=== PATIENT | female | born 1955 | race Caucasian/White ===

== ENCOUNTER 2018-02-17 05:35 | Inpatient (IN) | payer MEDICAID ==
[~2018-02-17] VITALS: Ht 157.5 cm; Wt 86.2 kg
[~2018-02-17 05:35] MED LIST: CALC-61 PO; ENAL10TA PO; ERGO500013 PO; NORT50CA PO
[2018-02-17] MEDS ORDERED: LACTATED RINGERS 1,000 ML IV SCH (06:40)
[2018-02-17] MEDS ORDERED: OMEP20CA10 PO (07:05)
[2018-02-17] MEDS ORDERED: DICL75TA5 PO (07:05)
[2018-02-17] MEDS ORDERED: XALAO EACHEYE (07:05)
[2018-02-17] MEDS ORDERED: DOCU-272 PO (07:05)
[2018-02-17] MEDS ORDERED: TRAM50TA3 PO (07:05)
[2018-02-17] MEDS ORDERED: TRANEXAMIC ACID 1,000 MG/10 ML IV NR (07:15)
[2018-02-17 07:20] LABS: CLARITY URINE CLEAR (CLEAR); COLOR URINE YELLOW (YELLOW); KETONES URINE NEGATIVE (NEGATIVE); LEUKOCYTE ESTERASE URINE NEGATIVE (NEGATIVE); NITRITE URINE NEGATIVE (NEGATIVE); OCCULT BLOOD URINE NEGATIVE (NEGATIVE); PROTEIN URINE NEGATIVE (NEGATIVE); UROBILINOGEN URINE 0.2 E.U./dL (0.2-1.0)
[2018-02-17 07:21] LABS: PARTIAL THROMBOPLASTIN TIME 25.7 sec (23.4-31.0); PROTHROMBIN TIME 10.1 sec (9.1-11.1)
[2018-02-17] MEDS ORDERED: LEVOFLOXACIN 500MG PREMIX 100 ML IV ONE (07:24)
[2018-02-17] MEDS ORDERED: GENTAMICIN SULF 40MG/ML 2ML VIAL ONE ×2 (07:29→09:04)
[2018-02-17] MEDS ORDERED: METHYLENE BLUE 50 MG/10 ML AMP IV ONE (07:29)
[2018-02-17] MEDS ORDERED: EPINEPHRINE 1:1000 1 MG/ML AMP ONE (07:30)
[2018-02-17] MEDS ORDERED: CLINDAMYCIN 900 MG in DEXTROSE 5% WATER 50 ML IV STA (07:30)
[2018-02-17] MEDS ORDERED: BUPIVACAINE HCL/EPINEPHRINE 0.5%/0.0005 30ML ONE (07:30)
[2018-02-17] MEDS ORDERED: BUPIVACAINE HCL 0.5% (5MG/ML) 50ML ONE (07:30)
[2018-02-17] MEDS ORDERED: NORMAL SALINE 0.9% 10 ML SYR ONE (07:30)
[2018-02-17] MEDS ORDERED: TRANEXAMIC ACID IV NR ×2 (07:30→10:15)
[2018-02-17] MEDS ORDERED: SODIUM CHLORIDE 0.9% IV NR ×2 (07:30→10:15)
[2018-02-17] MEDS ORDERED: BACITRACIN 50,000 UNITS/VIAL ONE (07:31)
[2018-02-17] MEDS ORDERED: PROPOFOL 200MG/20ML VIAL IV ONE (07:46)
[2018-02-17] MEDS ORDERED: LIDOCAINE HCL/PF 1% 10 MG/ML 5ML VIAL ONE (07:46)
[2018-02-17] MEDS ORDERED: EPHEDRINE SULFATE 50MG/ML VIAL ONE (07:47)
[2018-02-17] MEDS ORDERED: MIDAZOLAM HCL 2 MG/2 ML VIAL ONE (07:47)
[2018-02-17] MEDS ORDERED: ROCURONIUM BROMIDE 10MG/ML VIAL 5ML IV ONE (07:47)
[2018-02-17] MEDS ORDERED: FENTANYL CITRATE/PF 50MCG/ML 2ML VIAL ONE (07:47)
[2018-02-17] MEDS ORDERED: MORPHINE SULFATE/PF 1MG/ML 10ML AMP ONE (09:04)
[2018-02-17] MEDS ORDERED: BUPIVACAINE/EPINEPH/PF 0.25%/0.0005 10ML ONE (09:33)
[2018-02-17] MEDS ORDERED: VANCOMYCIN HCL 500 MG/VIAL ONE ×2 (10:03→10:04)
[2018-02-17] MEDS ORDERED: ONDANSETRON HCL 4MG/2ML INJ ONE (11:18)
[2018-02-17] MEDS ORDERED: DEXAMETHASONE 4MG/ML 1ML VIAL ONE (11:18)
[2018-02-17] MEDS ORDERED: HYDROMORPHONE HCL/PF 2MG/ML CPJ ONE (12:04)
[2018-02-17] MEDS: HYDROMORPHONE HCL/PF 2MG/ML CPJ IV PRN ×4 (12:09→13:10)
[2018-02-17] MEDS ORDERED: MAGNESIUM HYDROXIDE 400MG/5ML 30ML UDC PO PRN (12:15)
[2018-02-17] MEDS ORDERED: ONDANSETRON HCL 4MG/2ML INJ IV PRN (12:15)
[2018-02-17] MEDS ORDERED: HYDROCODONE/ACETAMINOPHEN 10/325MG TABLET PO PRN (12:15)
[2018-02-17] MEDS ORDERED: ACETAMINOPHEN 325MG TABLET PO PRN (12:15)
[2018-02-17] MEDS: ONDANSETRON HCL 4MG/2ML INJ IV PRN ×2 (12:16→12:55)
[2018-02-17] MEDS ORDERED: NALOXONE INJ IV PRN (13:30)
[2018-02-17] MEDS ORDERED: ONDANSETRON INJ IV PRN (13:30)
[2018-02-17] MEDS ORDERED: MORPHINE PCA 50MG/50ML IV PRN (13:30)
[2018-02-17] MEDS: DIPHENHYDRAMINE INJ IV PRN (14:07)
[2018-02-17] MEDS ORDERED: METOCLOPRAMIDE HCL 10MG/2ML VIAL IV ONE (14:15)
[2018-02-17 16:00] VITALS: BP_SYST 122; BP_SYST 130; BP_DIAS 61; BP_DIAS 88
[2018-02-17] MEDS ORDERED: METOCLOPRAMIDE HCL 10MG/2ML VIAL IV NR (16:00)
[2018-02-17] MEDS: CELECOXIB 200MG CAPSULE PO SCH (17:42)
[2018-02-17] MEDS: DOCUSATE SODIUM 100MG CAPSULE PO SCH (17:50)
[2018-02-17] MEDS: FERROUS SULFATE 325MG TABLET PO SCH (18:42)
[2018-02-17 20:00] VITALS: BP 122/66
[2018-02-17] MEDS: CLINDAMYCIN 900 MG in DEXTROSE 5% WATER 50 ML IV SCH (20:56)
[2018-02-17] MEDS: LATANOPROST 0.005% OPHTH DROPS 2.5ML EACHEYE SCH (20:56)
[2018-02-17] MEDS: ENALAPRIL 5MG TABLET PO SCH (20:56)
[2018-02-17] MEDS ORDERED: ERGOCALCIFEROL 50000UNITS CAPSULE PO SCH (21:00)
[2018-02-17] MEDS ORDERED: NORTRIPTYLINE HCL 25MG CAPSULE PO PRN (21:00)
[2018-02-18] VITALS: BP 124/60
[2018-02-18] MEDS: ZOLPIDEM TARTRATE 5MG TABLET PO PRN ×2 (00:11→22:22)
[2018-02-18 04:00] VITALS: BP 110/59
[2018-02-18] MEDS: CLINDAMYCIN 900 MG in DEXTROSE 5% WATER 50 ML IV SCH (05:11)
[2018-02-18] MEDS: OMEPRAZOLE 20MG CAPSULE EXTENDED RELEASE PO SCH (06:51)
[2018-02-18] MEDS: FERROUS SULFATE 325MG TABLET PO SCH ×3 (06:51→17:12)
[2018-02-18 06:56] LABS: BASOPHILS % 0.1 % (0.0-2.0); EOSINOPHILS % 0.1 % (0.0-5.0); HEMATOCRIT. 32.6 % (36.0-48.0); HEMOGLOBIN. 11.1 g/dL (12.0-16.0); MEAN CORPUSCULAR HEMOGLOBIN 31.1 pg (28.0-32.0); MEAN CORPUSCULAR VOLUME 91.4 fL (81.0-99.0); MEAN PLATELET VOLUME 9.8 fl (7.4-10.4); MONOCYTES % 9.6 % (2.0-8.0); NEUTROPHILS % 75.2 % (40.0-76.0); PLATELET 255 x1000/uL (130-400); RED BLOOD CELL COUNT 3.56 mill/uL (4.2-5.4)
[2018-02-18 07:48] LABS: CHLORIDE 106 mEq/L (98-107)
[2018-02-18 07:55] LABS: PHOSPHORUS 3.3 mg/dL (2.5-4.9)
[2018-02-18 07:56] LABS: LDL CHOLESTEROL 109 mg/dL (5-100)
[2018-02-18 07:58] LABS: HDL CHOLESTEROL 38 mg/dL (40-59)
[2018-02-18] MEDS: ENALAPRIL 5MG TABLET PO SCH (08:23)
[2018-02-18] MEDS: DOCUSATE SODIUM 100MG CAPSULE PO SCH ×2 (08:28→17:12)
[2018-02-18] MEDS: CELECOXIB 200MG CAPSULE PO SCH ×2 (08:28→17:12)
[2018-02-18 08:34] VITALS: BP 100/49
[2018-02-18] MEDS: ENOXAPARIN 30MG/0.3ML SYR SUBCUT SCH ×2 (10:09→22:21)
[2018-02-18 11:49] VITALS: BP 125/61
[2018-02-18] MEDS: HYDROCODONE/ACETAMINOPHEN 10/325MG TABLET PO PRN ×2 (12:43→22:19)
[2018-02-18 16:05] VITALS: BP 104/67
[2018-02-18] MEDS: DIPHENHYDRAMINE INJ IV PRN (17:17)
[2018-02-18 20:00] VITALS: BP 104/56
[2018-02-18] MEDS: LATANOPROST 0.005% OPHTH DROPS 2.5ML EACHEYE SCH (22:20)
[2018-02-19] VITALS: BP 97/48
[2018-02-19 04:00] VITALS: BP 116/63
[2018-02-19] MEDS: HYDROCODONE/ACETAMINOPHEN 10/325MG TABLET PO PRN ×3 (04:50→13:24)
[2018-02-19 06:14] LABS: CHLORIDE 108 mEq/L (98-107)
[2018-02-19 06:30] LABS: BASOPHILS % 0.4 % (0.0-2.0); EOSINOPHILS % 1.8 % (0.0-5.0); HEMATOCRIT. 33.3 % (36.0-48.0); HEMOGLOBIN. 11.2 g/dL (12.0-16.0); LYMPHOCYTES % 29.6 % (20.0-50.0); MEAN CORPUSCULAR HEMOGLOBIN 31.2 pg (28.0-32.0); MEAN CORPUSCULAR VOLUME 92.8 fL (81.0-99.0); MEAN PLATELET VOLUME 9.9 fl (7.4-10.4); MONOCYTES % 9.9 % (2.0-8.0); NEUTROPHILS % 58.3 % (40.0-76.0); PLATELET 230 x1000/uL (130-400); RED BLOOD CELL COUNT 3.58 mill/uL (4.2-5.4); RED CELL DISTRIBUTION WIDTH 13.9 % (11.6-14.6)
[2018-02-19] MEDS: OMEPRAZOLE 20MG CAPSULE EXTENDED RELEASE PO SCH (06:55)
[2018-02-19 08:00] VITALS: BP 93/45
[2018-02-19] MEDS: ENALAPRIL 5MG TABLET PO SCH (08:48)
[2018-02-19] MEDS: FERROUS SULFATE 325MG TABLET PO SCH ×2 (09:19→13:00)
[2018-02-19] MEDS: CELECOXIB 200MG CAPSULE PO SCH (09:19)
[2018-02-19] MEDS: DOCUSATE SODIUM 100MG CAPSULE PO SCH (09:19)
[2018-02-19] MEDS: ENOXAPARIN 30MG/0.3ML SYR SUBCUT SCH (09:23)
[2018-02-19 12:00] VITALS: BP 107/57
[2018-02-19] MEDS ORDERED: FERR325T23 PO (13:53)
[2018-02-19 15:06] VITALS: BP 124/62
[2018-02-19 16:00] VITALS: BP 142/64
== END 2018-02-19 16:35 | disposition home health service (06) | DRG 302 ==
LOC: OR 05:35 → 6EST 05:36
PROVIDERS: ADMIT Orthopaedic Surgery; ATTEND Internal Medicine
PROC: 0SRD0J9 Replacement of Left Knee Joint with Synthetic Substitute, Cemented, Open Approach (ICD-10-PCS; principal; 2018-02-17 07:30)
DX: M17.12 Unilateral primary osteoarthritis, left knee (principal); D64.9 Anemia, unspecified; E66.9 Obesity, unspecified; E78.5 Hyperlipidemia, unspecified; I10 Essential (primary) hypertension; G47.00 Insomnia, unspecified; K59.09 Other constipation; G89.29 Other chronic pain; M65.9 Synovitis and tenosynovitis, unspecified; Z96.651 Presence of right artificial knee joint; Z88.0 Allergy status to penicillin; Z68.34 Body mass index [BMI] 34.0-34.9, adult
CPT/HCPCS: 36415; 73560; 80048; 80061; 83036; 83735; 84100; 84443; 86850; 86900; 88305; 88311; 97162; 97166; 97530; 97535; A4216; C1713; C1776; C1893; J0171; J1100; J1170; J1200; J1580; J1650; J1956; J2250; J2270; J2274; J2405; J2704; J2765; J3010; J3370; J3490; J7050; J7060; L1830; Q9968

== ENCOUNTER 2018-02-22 16:15 | Emergency (ER) | payer MEDICAID ==
[~2018-02-22] VITALS: Ht 154.9 cm; Wt 86.0 kg
[~2018-02-22 16:15] MED LIST changes: +DOCU-272 PO; +FERR325T23 PO; +OMEP20CA10 PO; +XALAO EACHEYE
[2018-02-22] MEDS ORDERED: SODIUM CHLORIDE 0.9% 1,000 ML IV ONE (17:21)
[2018-02-22] MEDS ORDERED: ONDANSETRON HCL 4MG/2ML INJ IV ONE (17:30)
[2018-02-22] MEDS ORDERED: MORPHINE SULFATE 2 MG/ML CPJ (NOT FOR IM USE) IV ONE (17:30)
[2018-02-22] MEDS ORDERED: MORPHINE SULFATE 10 MG/ML CPJ IV NR (18:00)
[2018-02-22 18:05] LABS: CHLORIDE 107 mEq/L (98-107); PROTHROMBIN TIME 10.5 sec (9.1-11.1)
[2018-02-22 18:07] LABS: BASOPHILS % 0.3 % (0.0-2.0); EOSINOPHILS % 0.2 % (0.0-5.0); HEMATOCRIT. 34.5 % (36.0-48.0); HEMOGLOBIN. 11.4 g/dL (12.0-16.0); LYMPHOCYTES % 8.1 % (20.0-50.0); MEAN CORPUSCULAR HEMOGLOBIN 30.7 pg (28.0-32.0); MEAN CORPUSCULAR VOLUME 92.9 fL (81.0-99.0); MEAN PLATELET VOLUME 9.8 fl (7.4-10.4); MONOCYTES % 5.2 % (2.0-8.0); NEUTROPHILS % 86.2 % (40.0-76.0); PLATELET 345 x1000/uL (130-400); RED BLOOD CELL COUNT 3.71 mill/uL (4.2-5.4); RED CELL DISTRIBUTION WIDTH 14.3 % (11.6-14.6)
[2018-02-22 18:11] LABS: HCG SCREEN NEGATIVE
[2018-02-22 18:30] VITALS: BP 155/65
[2018-02-22 18:36] LABS: CLARITY URINE TURBID (CLEAR); COLOR URINE DARK YELLOW (YELLOW); KETONES URINE 1+ (NEGATIVE); LEUKOCYTE ESTERASE URINE TRACE (NEGATIVE); NITRITE URINE NEGATIVE (NEGATIVE); OCCULT BLOOD URINE 2+ (NEGATIVE); PH URINE 5.5 (4.5-8.0); PROTEIN URINE 1+ (NEGATIVE); SPECIFIC GRAVITY URINE 1.022 (1.005-1.030)
== END 2018-02-22 22:15 | disposition home or self-care (01) ==
LOC: ER 22:06
DX: R10.84 Generalized abdominal pain (principal); K59.00 Constipation, unspecified; R11.0 Nausea; I10 Essential (primary) hypertension; Z98.890 Other specified postprocedural states; Z79.899 Other long term (current) drug therapy; Z88.0 Allergy status to penicillin
CPT/HCPCS: 36415; 74176; 80053; 81003; 83690; 84703; 85025; 85610; 96374; 96375; 99284; J2270; J2405; J7030

== ENCOUNTER 2018-04-21 11:38 | Emergency (ER) | payer MEDICAID ==
[~2018-04-21] VITALS: Ht 152.4 cm; Wt 83.0 kg
[2018-04-21 18:15] VITALS: BP 142/66
== END 2018-04-21 18:28 | disposition home or self-care (01) ==
LOC: ER 12:03
DX: M25.562 Pain in left knee (principal); M79.89 Other specified soft tissue disorders; I10 Essential (primary) hypertension; Z90.49 Acquired absence of other specified parts of digestive tract; Z88.0 Allergy status to penicillin; Z79.899 Other long term (current) drug therapy; Z96.659 Presence of unspecified artificial knee joint
CPT/HCPCS: 93971; 99284

== ENCOUNTER 2022-03-30 13:49 | Inpatient (IN) | payer MEDICARE, MEDICAID ==
[~2022-03-30] VITALS: Ht 157.5 cm; Wt 86.2 kg
[~2022-03-30 13:49] MED LIST changes: -CALC-61 PO; +DOCU-268 PO; -DOCU-272 PO; -ENAL10TA PO; +ENAL10TA19 PO; -OMEP20CA10 PO; +OMEP20CA14 PO; +[UNRECOGNIZED DRUG - CODE] PO
[2022-03-30] MEDS ORDERED: ACETAMINOPHEN 325MG TABLET PO STA (17:35)
[2022-03-30] MEDS ORDERED: SODIUM CHLORIDE 0.9% 1,000 ML IV ONE (17:45)
[2022-03-30 18:15] LABS: CLARITY URINE CLEAR (CLEAR); COLOR URINE YELLOW (YELLOW); KETONES URINE 1+ (NEGATIVE); LEUKOCYTE ESTERASE URINE TRACE (NEGATIVE); NITRITE URINE NEGATIVE (NEGATIVE); OCCULT BLOOD URINE NEGATIVE (NEGATIVE); PH URINE 5.5 (4.5-8.0); PROTEIN URINE NEGATIVE (NEGATIVE); SPECIFIC GRAVITY URINE 1.028 (1.005-1.030)
[2022-03-30 21:05] LABS: BASOPHILS % 0.4 % (0.0-2.0); EOSINOPHILS % 1.3 % (0.0-5.0); HEMATOCRIT. 30.1 % (36.0-48.0); LYMPHOCYTES % 35.7 % (20.0-50.0); MEAN CORPUSCULAR HEMOGLOBIN 28.2 pg (28.0-32.0); MEAN PLATELET VOLUME 9.6 fl (7.4-10.4); MONOCYTES % 13.8 % (2.0-8.0); NEUTROPHILS % 48.8 % (40.0-76.0); PLATELET 209 x1000/uL (130-400); RED BLOOD CELL COUNT 3.54 mill/uL (4.2-5.4); RED CELL DISTRIBUTION WIDTH 13.9 % (11.6-14.6)
[2022-03-30 21:08] LABS: CHLORIDE 110 mEq/L (98-107)
[2022-03-30] MEDS ORDERED: METOCLOPRAMIDE HCL 10MG/2ML VIAL IV ONE (21:30)
[2022-03-30] MEDS ORDERED: MORPHINE SULFATE 4 MG/ML CPJ (NOT FOR IM USE) IV ONE (21:45)
[2022-03-30] MEDS ORDERED: NITROGLYCERIN 0.4MG TABLET SL SL ONE (21:45)
[2022-03-30] MEDS ORDERED: IOHEXOL-350 100 ML BOTTLE ONE (23:09)
[2022-03-31 03:19] VITALS: BP 142/79
[2022-03-31] MEDS ORDERED: ONDANSETRON HCL 4MG/2ML INJ IV PRN (04:30)
[2022-03-31] MEDS ORDERED: IBUPROFEN 100MG/5ML UDC PO PRN (04:30)
[2022-03-31] MEDS ORDERED: IBUPROFEN 200MG TABLET PO PRN (04:45)
[2022-03-31 08:00] VITALS: BP 135/54
[2022-03-31] MEDS ORDERED: ENOXAPARIN 40MG/0.4ML SYR SUBCUT SCH (09:00)
[2022-03-31] MEDS: ASPIRIN 81MG TABLET PO SCH (09:04)
[2022-03-31] MEDS: OMEPRAZOLE 20MG CAPSULE EXTENDED RELEASE PO SCH (09:04)
[2022-03-31] MEDS ORDERED: ACETAMINOPHEN 325MG TABLET PO PRN ×2 (09:15→10:30)
[2022-03-31] MEDS ORDERED: GUAIFENESIN 200MG/10ML SUGAR FREE UDC PO PRN (10:30)
[2022-03-31] MEDS ORDERED: MAGNESIUM/ALUMINUM HYDROXIDE/SIMETHICONE 30ML UDC PO PRN (10:30)
[2022-03-31] MEDS ORDERED: IPRATROPIUM/ALBUTEROL 0.5-3(2.5)MG/3ML NEB HHN PRN (10:30)
[2022-03-31] MEDS ORDERED: ALBUTEROL (0.083%) 2.5MG/3ML NEB HHN PRN (11:30)
[2022-03-31] MEDS ORDERED: IPRATROPIUM BROMIDE (0.02%) 0.5MG/2.5ML NEB HHN PRN (11:30)
[2022-03-31 12:00] VITALS: BP 137/56
[2022-03-31] MEDS ORDERED: NALOXONE HCL 0.4MG/ML VIAL IV PRN (12:00)
[2022-03-31] MEDS: HYDROCODONE/ACETAMINOPHEN 5/325MG TABLET PO PRN ×3 (13:02→23:18)
[2022-03-31 13:10] LABS: BASOPHILS % 0.4 % (0.0-2.0); HEMATOCRIT. 28.2 % (36.0-48.0); HEMOGLOBIN. 9.6 g/dL (12.0-16.0); LYMPHOCYTES % 43.4 % (20.0-50.0); MEAN CORPUSCULAR HEMOGLOBIN 28.4 pg (28.0-32.0); MEAN CORPUSCULAR VOLUME 83.4 fL (81.0-99.0); MEAN PLATELET VOLUME 9.6 fl (7.4-10.4); MONOCYTES % 10.9 % (2.0-8.0); NEUTROPHILS % 43.3 % (40.0-76.0); PLATELET 201 x1000/uL (130-400); RED BLOOD CELL COUNT 3.38 mill/uL (4.2-5.4); RED CELL DISTRIBUTION WIDTH 13.5 % (11.6-14.6)
[2022-03-31 14:04] LABS: CHLORIDE 113 mEq/L (98-107)
[2022-03-31 14:17] LABS: HDL CHOLESTEROL 35 mg/dL (40-59); LDL CHOLESTEROL 56 mg/dL (5-100); T4 FREE 4.18 ng/dL (0.76-1.46)
[2022-03-31 16:00] VITALS: BP 140/65
[2022-03-31] MEDS: POLYETHYLENE GLYCOL 3350 (17GM) 1 DOSE PACK PO PRN (16:42)
[2022-03-31 17:24] LABS: CREATINE KINASE 45 IU/L (26-192); CREATINE KINASE MB FRACTION < 1.0 ng/mL (0.5-3.6)
[2022-03-31] MEDS ORDERED: DIGOXIN 500MCG/2ML AMP IV SCH (19:00)
[2022-03-31] MEDS ORDERED: CARVEDILOL 3.125 MG TABLET PO SCH (19:15)
[2022-03-31 20:00] VITALS: BP 158/85
[2022-03-31 20:25] LABS: TOTAL IRON BINDING CAPACITY 171 ug/dL (250-450)
[2022-03-31] MEDS: CARVEDILOL 3.125 MG TABLET PO SCH (20:36)
[2022-03-31] MEDS: ATORVASTATIN CALCIUM 10MG TABLET PO SCH (20:36)
[2022-03-31 20:56] LABS: FOLIC ACID (FOLATE) SERUM 17.7 ng/mL (>5.38)
[2022-03-31] MEDS: ZOLPIDEM TARTRATE 5MG TABLET PO PRN (21:32)
[2022-04-01] VITALS: BP 103/50
[2022-04-01 00:10] LABS: CREATINE KINASE 63 IU/L (26-192); CREATINE KINASE MB FRACTION < 1.0 ng/mL (0.5-3.6)
[2022-04-01 04:00] VITALS: BP 121/67
[2022-04-01 06:44] LABS: HEMATOCRIT 27.8 % (36.0-48.0); HEMOGLOBIN 9.4 g/dL (12.0-16.0); MEAN CORPUSCULAR HEMOGLOBIN 28.5 pg (28.0-32.0); PLATELET 192 x1000/uL (130-400); RED BLOOD CELL COUNT 3.31 mill/uL (4.2-5.4); RED CELL DISTRIBUTION WIDTH 13.7 % (11.6-14.6)
[2022-04-01 07:46] LABS: CHLORIDE 109 mEq/L (98-107)
[2022-04-01 07:57] LABS: CREATINE KINASE 41 IU/L (26-192); CREATINE KINASE MB FRACTION < 1.0 ng/mL (0.5-3.6); PHOSPHORUS 4.8 mg/dL (2.5-4.9)
[2022-04-01 08:00] VITALS: BP 141/55
[2022-04-01] MEDS: ASPIRIN 81MG TABLET PO SCH (08:48)
[2022-04-01] MEDS: APIXABAN 5 MG TABLET PO SCH ×2 (08:48→19:39)
[2022-04-01] MEDS: OMEPRAZOLE 20MG CAPSULE EXTENDED RELEASE PO SCH (08:48)
[2022-04-01] MEDS: CARVEDILOL 3.125 MG TABLET PO SCH ×2 (08:48→19:39)
[2022-04-01] MEDS ORDERED: METHIMAZOLE 5MG TABLET PO SCH (11:30)
[2022-04-01 12:00] VITALS: BP 172/78
[2022-04-01 12:54] LABS: *AMPHETAMINES SCREEN URINE NEGATIVE (NEGATIVE); *BARBITURATES SCREEN URINE NEGATIVE (NEGATIVE); *BENZODIAZEPINES SCREEN URINE NEGATIVE (NEGATIVE); *COCAINE SCREEN URINE NEGATIVE (NEGATIVE); CANNABINOID URINE SCREEN NEGATIVE (NEGATIVE); METHADONE URINE SCREEN NEGATIVE (NEGATIVE); OPIATES URINE SCREEN PRESUMTIVE POSITIVE (NEGATIVE); PHENCYCLIDINE URINE SCREEN NEGATIVE (NEGATIVE)
[2022-04-01] MEDS: POLYETHYLENE GLYCOL 3350 (17GM) 1 DOSE PACK PO PRN (13:26)
[2022-04-01 16:00] VITALS: BP 156/64
[2022-04-01] MEDS: ATORVASTATIN CALCIUM 10MG TABLET PO SCH (19:39)
[2022-04-01] MEDS: HYDROCODONE/ACETAMINOPHEN 5/325MG TABLET PO PRN (19:39)
[2022-04-01 20:00] VITALS: BP 164/85
[2022-04-01] MEDS: METHIMAZOLE 5MG TABLET PO SCH (21:24)
[2022-04-02] VITALS: BP 141/68
[2022-04-02 04:00] VITALS: BP 143/60
[2022-04-02 07:14] LABS: BASOPHILS % 0.5 % (0.0-2.0); EOSINOPHILS % 5.2 % (0.0-5.0); HEMATOCRIT. 28.7 % (36.0-48.0); LYMPHOCYTES % 38.6 % (20.0-50.0); MEAN CORPUSCULAR HEMOGLOBIN 28.9 pg (28.0-32.0); MEAN CORPUSCULAR VOLUME 82.7 fL (81.0-99.0); MEAN PLATELET VOLUME 9.8 fl (7.4-10.4); MONOCYTES % 14.4 % (2.0-8.0); NEUTROPHILS % 41.3 % (40.0-76.0); PLATELET 207 x1000/uL (130-400); RED BLOOD CELL COUNT 3.47 mill/uL (4.2-5.4); RED CELL DISTRIBUTION WIDTH 13.4 % (11.6-14.6)
[2022-04-02 08:00] VITALS: BP 138/70
[2022-04-02] MEDS ORDERED: REGADENOSON 0.4 MG/5 ML IV NR (08:00)
[2022-04-02 08:30] LABS: CHLORIDE 108 mEq/L (98-107)
[2022-04-02] MEDS ORDERED: NA PHOS,M-B/NA PHOS,DI-BA ENEMA 118ML PR PRN (08:45)
[2022-04-02 08:57] LABS: PHOSPHORUS 5.2 mg/dL (2.5-4.9); T4 FREE 3.21 ng/dL (0.76-1.46)
[2022-04-02] MEDS ORDERED: SENNOSIDES/DOCUSATE SOD 8.6/50MG TABLET PO SCH (09:00)
[2022-04-02] MEDS: ASPIRIN 81MG TABLET PO SCH (09:27)
[2022-04-02] MEDS: CARVEDILOL 3.125 MG TABLET PO SCH ×2 (09:27→21:00)
[2022-04-02] MEDS: APIXABAN 5 MG TABLET PO SCH ×2 (09:27→20:59)
[2022-04-02] MEDS: OMEPRAZOLE 20MG CAPSULE EXTENDED RELEASE PO SCH (09:27)
[2022-04-02] MEDS: METHIMAZOLE 5MG TABLET PO SCH ×2 (09:27→21:00)
[2022-04-02 12:00] VITALS: BP 149/46
[2022-04-02] MEDS: HYDROCODONE/ACETAMINOPHEN 5/325MG TABLET PO PRN (13:49)
[2022-04-02 16:19] VITALS: BP 142/76
[2022-04-02] MEDS: SENNOSIDES 8.6MG TABLET PO SCH (16:41)
[2022-04-02] MEDS ORDERED: METH-371 PO (16:42)
[2022-04-02] MEDS ORDERED: APIX5TAB PO (16:42)
[2022-04-02] MEDS ORDERED: SENN-257 PO (16:42)
[2022-04-02] MEDS ORDERED: COR3 PO (16:42)
[2022-04-02 20:00] VITALS: BP 160/61
[2022-04-02] MEDS: ATORVASTATIN CALCIUM 10MG TABLET PO SCH (21:00)
[2022-04-02] MEDS: ZOLPIDEM TARTRATE 5MG TABLET PO PRN (21:26)
[2022-04-03] VITALS: BP 124/73
[2022-04-03 04:00] VITALS: BP 125/55
[2022-04-03 07:34] LABS: CHLORIDE 108 mEq/L (98-107)
[2022-04-03 07:40] VITALS: BP 130/57
[2022-04-03] MEDS: METHIMAZOLE 5MG TABLET PO SCH (07:50)
[2022-04-03] MEDS: APIXABAN 5 MG TABLET PO SCH (07:50)
[2022-04-03] MEDS: ASPIRIN 81MG TABLET PO SCH (07:50)
[2022-04-03] MEDS: OMEPRAZOLE 20MG CAPSULE EXTENDED RELEASE PO SCH (07:50)
[2022-04-03] MEDS: CARVEDILOL 3.125 MG TABLET PO SCH (07:51)
[2022-04-03] MEDS: SENNOSIDES 8.6MG TABLET PO SCH (07:52)
[2022-04-03 08:04] LABS: HEMATOCRIT 32.2 % (36.0-48.0); HEMOGLOBIN 10.9 g/dL (12.0-16.0); MEAN CORPUSCULAR HEMOGLOBIN 28.7 pg (28.0-32.0); PLATELET 238 x1000/uL (130-400); RED BLOOD CELL COUNT 3.78 mill/uL (4.2-5.4); RED CELL DISTRIBUTION WIDTH 13.4 % (11.6-14.6)
[2022-04-03 12:00] VITALS: BP 128/54
[2022-04-03 14:08] VITALS: BP 128/54
== END 2022-04-03 17:54 | disposition home or self-care (01) | DRG 308 ==
LOC: ER 14:21 → MICUSO 23:41 → EDBEDREQ 23:44 → 7WST 03-31 02:38
PROVIDERS: ADMIT Internal Medicine; ATTEND Internal Medicine
DX: I48.0 Paroxysmal atrial fibrillation (principal); I50.33 Acute on chronic diastolic (congestive) heart failure; E05.90 Thyrotoxicosis, unspecified without thyrotoxic crisis or storm; I11.0 Hypertensive heart disease with heart failure; K21.9 Gastro-esophageal reflux disease without esophagitis; K59.09 Other constipation; E78.5 Hyperlipidemia, unspecified; D64.9 Anemia, unspecified; Z20.822 Contact with and (suspected) exposure to COVID-19; K22.4 Dyskinesia of esophagus; I25.10 Atherosclerotic heart disease of native coronary artery without angina pectoris; F32.A Depression, unspecified; F41.9 Anxiety disorder, unspecified; Z88.0 Allergy status to penicillin; Z79.899 Other long term (current) drug therapy; Z96.651 Presence of right artificial knee joint
CPT/HCPCS: 36415; 71045; 71275; 76536; 76700; 78452; 80048; 80053; 80061; 80305; 81003; 82550; 82553; 82607; 82728; 82746; 83036; 83520; 83540; 83550; 83605; 83735; 83880; 84100; 84439; 84443; 84481; 84484; 85025; 85027; 85379; 87426; 93005; 93017; 93306; 93970; 97162; 97166; 99285; A9500; J1160; J1650; J2270; J2405; J2765; J2785; J7030; Q9967